=== PATIENT | female | born 1990 | race Caucasian/White ===

== ENCOUNTER 2019-02-05 06:56 | Emergency (ER) | payer SELFPAY ==
[2019-02-05 06:57] VITALS: BP 152/96; PULSE 75; RESP 16; TEMP 36.5; O2SAT 100; BMI 47.9
--- NOTE | 2019-02-05 07:26 | RAD_ITS ---
STUDY: X-RAY CHEST REASON FOR EXAM: Female, 28 years old. Headache. TECHNIQUE: PA and lateral views of the chest. COMPARISON: None. FINDINGS: The lungs are clear and expanded. There is no demonstrated pleural abnormality. Normal size heart. Normal mediastinum and valeria. Normal visualized pulmonary arteries. Normal visualized aortic arch and descending thoracic aorta. Normal visualized thoracic spine. Normal visualized ribs, clavicles, and shoulders. There is no demonstrated abnormality of the visualized soft tissue structures of the upper abdomen. RAD/Chest PA and Lateral IMPRESSION: Normal x-ray examination of the chest. Electronically Signed: Percy Godoy MD at 8:47 EDT , Service support ,
[2019-02-05 07:38] VITALS: PULSE 82; RESP 20
[2019-02-05] MEDS: Ipratropium/Albuterol Sulfate 3 ML AMPUL.NEB INHALATION (07:38)
[2019-02-05 08:12] LABS: Internal QC Validated? YES +Cl - CLEAR BKGD; Pregnancy, Urine Negative Negative
--- NOTE | 2019-02-05 08:13 | ED.VISSUMM ---
- ER Visit Summary Date of Service: 02/05/19 Chief Complaint: [] Cough chest congestion nasal congestion vomiting History of Present Illness: The patient is a 28 F [] patient reports she has had a runny nose and a harsh cough for a few days she then had some vomiting and diarrhea those symptoms have improved but she still has a harsh dry cough she might have asthma, but she has no other underlying cardia pulmonary disease other than polycystic ovary disease she denies being bowel bladder habits been normal no fever Physical Examination: [] Vital signs are within normal range General, no distress resting comfortably HEENT is generally unremarkable, she does have rhinorrhea and a harsh cough The neck is supple no adenopathy Cardiovascular, regular rate and rhythm Lungs, clear bilateral Abdomen, soft nontender Extremities, no clubbing cyanosis or edema Neurologic, awake alert answering questions appropriately moving all 4 extremities Test Results: [] Emergency Department Course and Treatment: [] Clinically she looks well except for the harsh cough and the rhinorrhea, she received aerosols she had no vomiting she is taking p.o. fluids here without difficulty, chest x-ray is pending Patient's chest x-ray is unremarkable per radiology she is taking p.o. fluids she has no vomiting diarrhea her she is feeling better after the aerosol, at this time the predominance of her system related to rhinorrhea and a harsh cough she will be discharged on Proventil inhaler she will take Mucinex [id number] and follow with her doctors return for change in symptoms Treatment Plan: [] Disposition: [] Home stable Impression: [] URI with harsh cough This note was generated with [employer] dictation software. It may contain incorrect words, spelling, and punctuation that were not noted in review of the chart prior to signing ED Disposition - Plan for ED Patient: Referrals: Александр Cowan DO [Primary Care Provider] -
--- NOTE | 2019-02-05 08:26 | ED.DCSUM_ITS ---
- ER Visit Summary Date of Service: 02/05/19 Chief Complaint: [] Cough chest congestion nasal congestion vomiting History of Present Illness: The patient is a 28 F [] patient reports she has had a runny nose and a harsh cough for a few days she then had some vomiting and diarrhea those symptoms have improved but she still has a harsh dry cough she might have asthma, but she has no other underlying cardia pulmonary disease other than polycystic ovary disease she denies being bowel bladder habits been normal no fever Physical Examination: [] Vital signs are within normal range General, no distress resting comfortably HEENT is generally unremarkable, she does have rhinorrhea and a harsh cough The neck is supple no adenopathy Cardiovascular, regular rate and rhythm Lungs, clear bilateral Abdomen, soft nontender Extremities, no clubbing cyanosis or edema Neurologic, awake alert answering questions appropriately moving all 4 extremities Test Results: [] Emergency Department Course and Treatment: [] Clinically she looks well except for the harsh cough and the rhinorrhea, she received aerosols she had no vomiting she is taking p.o. fluids here without difficulty, chest x-ray is pending Patient's chest x-ray is unremarkable per radiology she is taking p.o. fluids she has no vomiting diarrhea her she is feeling better after the aerosol, at this time the predominance of her system related to rhinorrhea and a harsh cough she will be discharged on Proventil inhaler she will take Mucinex [id number] and follow with her doctors return for change in symptoms Treatment Plan: [] Disposition: [] Home stable Impression: [] URI with harsh cough This note was generated with [employer] dictation software. It may contain incorrect words, spelling, and punctuation that were not noted in review of the chart prior to signing ED Disposition - Plan for ED Patient: Referrals: Александр Cowan DO [Primary Care Provider] -
[2019-02-05 09:07] VITALS: BP 139/87; PULSE 69; RESP 18; O2SAT 97
--- NOTE | 2019-02-05 09:08 | ED.DEP ---
ED Disposition - Plan for ED Patient: Instructions: ED Upper Resp Infec No Abx Tx Prescriptions: Albuterol Inhaler [Ventolin Hfa] 1 - 2 puff INHALATION Q4H PRN PRN #1 inhaler PRN Reason: Wheezing Referrals: Александр Cowan DO [Primary Care Provider] -
[2019-02-05 09:27] VITALS: O2SAT 97
== END 2019-02-05 09:27 | disposition home or self-care (01) ==
PROVIDERS: Emergency Provider Emergency Medicine; Family Provider Family Medicine; PCP Family Medicine
DX: J06.9 Acute upper respiratory infection, unspecified (principal)
CPT/HCPCS: 71046; 81025; 94640; 99282

== ENCOUNTER 2019-07-07 13:41 | Emergency (ER) | payer SELFPAY ==
[2019-07-07 13:42] VITALS: BP 152/113; PULSE 111; RESP 17; TEMP 36.5; O2SAT 97; BMI 46.8
[2019-07-07] MEDS: Ipratropium/Albuterol Sulfate 3 ML AMPUL.NEB INHALATION (14:32)
[2019-07-07 14:33] VITALS: PULSE 72; RESP 20
--- NOTE | 2019-07-07 14:40 | RAD_ITS ---
STUDY: X-RAY CHEST REASON FOR EXAM: Female, 28 years old. Cough. TECHNIQUE: PA and lateral views of the chest. COMPARISON: Comparison is made with prior study dated February 05, 2019. FINDINGS: The lungs are clear and expanded. Scattered calcified granulomas. There is no demonstrated pleural abnormality. Normal size heart. Normal mediastinum and valeria. Normal visualized pulmonary arteries. Normal visualized aortic arch and descending thoracic aorta. Normal visualized thoracic spine. Normal visualized ribs, clavicles, and shoulders. There is no demonstrated abnormality of the visualized soft tissue structures of the upper abdomen. RAD/Chest PA and Lateral IMPRESSION: Scattered calcified granulomas. No acute abnormality is seen. Electronically Signed: Franco Garcia, at 14:55 EDT , Service support ,
[2019-07-07 14:47] LABS: Absolute Lymphocyte Count 2.19 X10^3/uL (0.83-4.51); Absolute Neutrophil Count 6.3 X10^3/uL (2.0-7.7); Basophil# 0.04 X10^3/uL; Basophil% 0.4 % (0-1); Eosinophil# 0.13 X10^3/uL; Eosinophils% 1.4 % (0-5); Hematocrit 35.6 % (37-47); Hemoglobin 11.5 g/dL (12.0-15.0); Lymphocyte # 2.19 X10^3/ul (4.0); Lymphocyte % 23.3 % (19-41); Mean Corp Hgb Conc 32.3 g/dL (32-36); Mean Corpuscular Hgb 29.6 pg (27.0-32.0); Mean Corpuscular Volume 91.5 fL (81-99); Mean Platelet Vol. 9.6 fl (6.2-12.0); Monocyte% 7.5 % (0-10); NRBC Flagged by Analyzer 0 % (0-5); Neutrophil % 67.1 % (47-70); Platelet Count 343 K/mm3 (150-450); RBC Distribution Width CV 12.4 % (11.6-14.6); RBC Distribution Width SD 41.1 fl (35.1-43.9); Red Blood Count 3.89 M/mm3 (4.2-5.4); White Blood Count 9.4 K/mm3 (4.4-11.0)
[2019-07-07 14:59] LABS: Anion Gap 4 (5-15); BUN 11 mg/dL (7-18); BUN/Creat Ratio 14.6 RATIO (10-20); Chloride 109 mmol/L (98-107); Creatinine, Serum 0.75 mg/dL (0.55-1.02); EST Glomerular Filtration Rate 98 mL/min (>60); Est Glom Filt Rate - Afr Amer 119 mL/min (>60); Estimated Creatinine Clearance 81.65 ml/min; Glucose 91 mg/dL (74-106); Potassium 3.8 mmol/L (3.5-5.1); Sodium Level 141 mmol/L (136-145)
--- NOTE | 2019-07-07 15:51 | ED.DCSUM_ITS ---
- ER Visit Summary Date of Service: 07/07/19 Chief Complaint: Cough History of Present Illness: The patient is a 28 F who presents with a cough that began yesterday. Patient states it is been constant since yesterday. Patient states she has sharp pain in her left chest that is worse with coughing. Patien t states her cough is worse when she lays down. Patient admits to some lightheadedness. Patient states that her cough improves when she lifts her arms above her head. Patient admits to subjective fevers and chills. Patient also admits to a sore throat and rhinorrhea. Patient admits to a mild headache. Patient admits to nausea but denies any vomiting. Physical Examination: Vital signs are stable except for mild tachycardia of 111. Patient is afebrile. Patient is in no acute distress. Oral mucosa is pink and moist. Neck is supple. Trachea is midline. There is no JVD noted. Heart was regular rate and rhythm. Lungs are clear and equal bilaterally. Abdomen is soft and nontender. Cranial nerves II through XII are intact. There are no focal motor or sensory deficits noted. Skin is warm and dry. Test Results: PA and lateral chest x-ray was obtained. There is no acute cardiopulmonary process noted. Emergency Department Course and Treatment: Patient was given a DuoNeb aerosol here. Patient felt better on reevaluation. Patient was advised that this is most likely a viral upper respiratory infection. Patient was instructed to follow-up with her primary care physician in 5 to 7 days. Patient was instructed to use [id number] cough medications as needed. Patient understood and was agreeable with the plan. All questions were answered. Disposition: Discharge home Impression: Viral upper respiratory infection with cough This note was generated with [employer] dictation software. It may contain incorrect words, spelling, and punctuation that were not noted in review of the chart prior to signing ED Disposition - Plan for ED Patient: Disposition: Home or Assisted Living Diagnosis: Viral upper respiratory tract infection with cough Instructions: BRONCHITIS, No Antibiotic (Adult) Referrals: Александр Cowan, [Primary Care Provider] - 5-7 Days
[2019-07-07 16:04] VITALS: BP 111/78; PULSE 97; RESP 18; O2SAT 99
== END 2019-07-07 16:11 | disposition home or self-care (01) ==
PROVIDERS: Emergency Provider Emergency Medicine; Family Provider Family Medicine; PCP Family Medicine
DX: J06.9 Acute upper respiratory infection, unspecified (principal); M54.9 Dorsalgia, unspecified; E66.9 Obesity, unspecified; Z87.891 Personal history of nicotine dependence
CPT/HCPCS: 71046; 80048; 85025; 94640; 99283

== ENCOUNTER 2020-01-15 09:56 | Emergency (ER) | payer SELFPAY ==
[2020-01-15 09:56] VITALS: BP 156/105; PULSE 82; RESP 18; TEMP 36.9; O2SAT 99; BMI 48.8
[2020-01-15 10:41] VITALS: RESP 16
[2020-01-15 10:50] LABS: Bedside Glucose 85 mg/dL (70-110)
[2020-01-15 11:09] LABS: Color, Urine Yellow (Yellow); Glucose, Dipstick Normal (Normal); Ketone-Dipstick 5 mg/dl (Negative); Leukocyte Esterase-Dipstick 25 /ul (Negative); Nitrite-Dipstick Negative (Negative); Occult Blood-Urine 10 /ul (Negative); Protein-Dipstick 30 mg/dl (Negative); Specific Gravity, Urine 1.025 (1.002-1.030); Urine Bilirubin Dipstick Negative (Negative); Urine Clarity Sl. Cloudy (Clear); Urine Urobilinogen 1 mg/dl (Normal)
[2020-01-15 11:17] LABS: Bacteria 2+ /hpf (None Seen); Mucous, Urine 3+ /hpf (<or=2+)
[2020-01-15 11:18] LABS: Hyaline Cast 0-5 SEEN /lpf (0-5)
[2020-01-15 11:19] LABS: Red Blood Cells-Urine 0-5 SEEN /hpf (0-5); Squamous Epithelial Cells - UA 0-5 SEEN /hpf (5-10); White Blood Cells 0-5 SEEN /hpf (0-5)
--- NOTE | 2020-01-15 11:51 | ED.VIS.GEN ---
History of Present Illness Chief Complaint: Cough Detail of Chief Complaint: Cough, myalgias, urinary symptoms, headache and feeling ill Informant: Patient Onset: Yesterday Context: Sudden Onset Timing: Continuous Quality: Generalized viral-like symptoms and urinary symptoms Location: Generalized Current Severity: Moderate Maximum Severity: Severe Worsened by: Movement Relieved by: Nothing Associated Symptoms: Respiratory and urinary symptoms Narrative: Patient is 29-year-old female who apparently was seen at outside facility yesterday. She states nothing was done for her. She denies documented fever. She complains of myalgias arthralgias. She reports nasal congestion with cough. Cough is nonproductive. She also complains of frequency and dysuria. She denies flank pain. She does have low central back pain. She denies blood in her urine. She does report headache. Denies photophobia, neck pain or neck stiffness. She reports mild sore throat. She reports chest pain with coughing. She does complain of vague abdominal pain. She has not noted a rash. She denies joint swelling. She denies neurologic symptoms. Prior similar symptoms: Yes Recent Illness/Hospitalization: Yes - Past Medical History (1) No significant past medical history Status: Acute Past Medical History - Allergies and Home Meds Allergies/Adverse Reactions: Allergies bee venom protein (honey bee) Allergy (Verified 02/05/19 07:00) Swelling latex Allergy (Verified 02/05/19 07:00) Rash Primary Care Physician: Александр Cowan DO [Primary Care Provider] - Prior records reviewed: No Past Medical History: None Surgical History: cholecystectomy Lives: Spouse/ Significant Other Smoking Status: Current some day smoker Alcohol: Rare Drugs: None Review of Systems General: Reports: Chills, Fever, Malaise, Subjective. Denies: Sweats, Weight loss Eyes: Denies: Visual changes - bilaterally, Blurred Vision - bilaterally ENT: Reports: Rhinorrhea, Sore throat. Denies: Bilateral ear pain Cardiovascular: Denies: Chest pain, Palpitations Respiratory: Reports: Dyspnea, Cough. Denies: Sputum, Orthopnea, Paroxysmal nocturnal dyspnea Gastrointestinal: Reports: Abdominal pain, Nausea. Denies: Diarrhea, Constipation, Melena, Hematochezia Genitourinary: Reports: Dysuria, Frequency. Denies: Hematuria Musculoskeletal: Reports: Myalgias, Back pain. Denies: Arthralgias, Neck pain, Swelling, Extremity Pain Skin: Denies: Rash, Wounds Neurological: Reports: Headache, Weakness. Denies: Parasthesia, Numbness Endocrine: Denies: Polyuria, Polydipsia Hematologic: Denies: Easy bruising, Easy bleeding Physical Exam Vital Signs/Narrative: Vital Signs Temp Pulse Resp BP Pulse Ox 01/15/20 10:41 16 01/15/20 09:56 98.4 F 82 18 156/105 H 99 Inital Vital Signs reviewed: Yes General: Well nourished, Well developed, Obese, No Acute Distress Head: Normocephalic, Atraumatic Eyes: Perrl, EOMI. Negative for: Pale conjunctiva, Scleral icterus ENT: Moist mucous membranes, No rhinorrhea, TM's clear Neck: Supple, Nontender, No lymphadenopathy, No JVD Cardiovascular: Regular rate, Regular rhythm, No murmurs, Normal S1, Normal S2 Respiratory: No distress, CTA bilaterally, Chest nontender. Negative for: Decreased Air Movement Abdomen: Soft, Nondistended, Normal bowel sounds, No masses, Tender - Discomfort suprapubic region.. Negative for: Nontender Rectal: Deferred Back: Nontender, Normal Inspection. Negative for: CVA tenderness Extremities: Nontender, No edema. Negative for: Tenderness, Edema Skin: Normal color, No rash, No Trauma. Negative for: Cyanosis, Diaphoresis, Jaundice Neurological: Alert, Oriented x3, Cranial nerves II-XII grossly intact Psychological: - - Overdramatic Diagnostic/Tx/Re-eval Laboratory Results 01/15/20 01/15/20 10:39 10:57 Urine Color Yellow Urine Clarity Sl. Cloudy Urine pH 5.0 Ur Specific [place] 1.025 Urine Protein 30 H Urine Glucose (UA) Normal Urine Ketones 5 H Urine Occult Blood 10 H Urine Nitrite Negative Urine Bilirubin Negative Urine Urobilinogen 1 H Ur Leukocyte Esterase 25 H Urine RBC 0-5 SEEN Urine WBC 0-5 SEEN Ur Squamous Epith Cells 0-5 SEEN Urine Bacteria 2+ Hyaline Casts 0-5 SEEN Urine Mucus 3+ POC Glucose 85 - Medical Decision Making PTT was obtained to assess for hyperglycemia as explanation of her frequency. UA was obtained to assess for urinary tract infection. In light of patient's constellation of symptoms and lack of objective respiratory findings suspect patient has a viral upper respiratory infection and no imaging or testing was obtained. Urine is consistent with infection. She received first dose of Macrobid in the emergency department. Culture was not obtained since she is not had a recent urinary tract infection or history of diabetes or being immune suppressed. ED Disposition - Plan for ED Patient: Disposition: Home or Assisted Living Diagnosis: Cystitis, Upper respiratory infection with cough and congestion Instructions: Urinary Tract Infections in Women, URI, Viral, No Abx (Adult) Prescriptions: Nitrofurantoin Macrocrystals [Macrobid] 100 mg PO Q12 #10 cap Prescription Printed Referrals: Александр Cowan, DO [Primary Care Provider] - 3-5 Days if not improving Additional Instructions: You may have a cough for 3 to 4 weeks. You may have aches for 1-2 more weeks.
[2020-01-15] MEDS: Nitrofurantoin Macrocrystals 100 MG Capsule PO (12:11)
[2020-01-15 12:13] VITALS: BP 151/84; PULSE 82; RESP 16; O2SAT 97
--- NOTE | 2020-01-15 12:30 | CM.ED ---
SOCIAL WORK INFORMANT: NURSEHUDSON REASON FOR REFERRAL: RX ASSISTANCE MET WITH PATIENT IN ROOM. INTRODUCED ROLE AND REASON FOR REFERRAL. PATIENT INQUIRING ABOUT COST OF PRESCRIPTION. CALL TO [facility], COST OF PRESCRIPTION IS $16.15. PATIENT STATES ABLE TO AFFORD PRESCRIPTION AND PLANS TO HAVE PRESCRIPTION FILLED AT [facility]. NO OTHER QUESTIONS OR CONCERNS AT THIS TIME. NURSE UPDATED. 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
== END 2020-01-15 12:33 | disposition home or self-care (01) ==
PROVIDERS: Emergency Provider Emergency Medicine; PCP Family Medicine
DX: N30.90 Cystitis, unspecified without hematuria (principal); J06.9 Acute upper respiratory infection, unspecified; R05 Cough; R09.81 Nasal congestion; E66.9 Obesity, unspecified; F17.200 Nicotine dependence, unspecified, uncomplicated
CPT/HCPCS: 81001; 82962; 99284

== ENCOUNTER 2021-03-01 14:58 | Emergency (ER) | payer SELFPAY ==
[2021-03-01 14:59] VITALS: BP 137/100; PULSE 77; RESP 18; TEMP 36.5; O2SAT 99; BMI 46.3
--- NOTE | 2021-03-01 15:17 | EDS_ITS ---
HPI History of Present Illness Chief Complaint: Abd Pain Informant: patient Narrative Narrative: 30-year-old female presents for the evaluation of abdominal pain. Patient states that about 9 days ago she began to have dysuria and urinary frequency. She self treated with cranberry juice fluids and Azo. She started to feel better but by Wednesday the symptoms started to return on she went to outside medical facility and was given a prescription for nitrofurantoin for UTI. She states she started taking that on Wednesday she had at that time developed some lower abdominal discomfort that is now moved more cephalad. Now she notes more of a generalized abdominal pain and also nausea. She notes that she had some low back discomfort that is now higher into the CVA region bilaterally. She denies any fevers. She notes that she recently had some sinus issues which has resolved. She notes she is had prior cholecystectomy. Pain waxes and wanes and at times doubles her over. No change in bowel habits. PFSH PFSH no medical history Home Medications cephalexin 500 mg PO Q12 #10 capsule 03/01/21 [Rx Last Taken Unknown] Allergy/AdvReac Type Severity Reaction Status Date / Time bee venom protein (honey bee) Allergy Swelling Verified 03/01/21 14:59 latex Allergy Rash Verified 03/01/21 14:59 Surgical History (Updated 03/01/21 @ 15:[address] Chriss Siegel DO) History of cholecystectomy Social History (Updated 03/01/21 @ 15:[address] Chriss Siegel DO) household members: family Smoking Status: Former smoker [facility] ED Constitutional Constitutional ED: Denies chills or weight loss Eyes Eyes: Denies change in vision or diplopia ENT ENT ED: Denies ear pain, rhinorrhea or sore throat Cardiovascular Cardiovascular: Denies chest pain, orthopnea, palpitations or racing heartbeat Respiratory/Chest Respiratory/Chest: Denies cough, dyspnea or orthopnea Gastrointestinal Gastrointestinal: Reports abdominal pain and nausea; Denies diarrhea or vomiting Genitourinary Genitourinary ED: Reports dysuria and urinary frequency; Denies hematuria Musculoskeletal Musculoskeletal: Reports back pain; Denies arthralgias or myalgias Integumentary Denies abscess or rash Neurologic Neurologic: Denies headache(s) or weakness Psychiatric Psychiatric: Denies anxiety, depression, suicidal ideation or suicidal thoughts Endocrine Endocrinology: Denies polydipsia, polyphagia or polyuria Allergic/Immunologic Allergic/Immunologic ED: Denies mouth swelling, tongue swelling or urticaria EXAM Physical Exam Const Vital Signs: 03/01/21 14:59 03/01/21 17:29 Temperature 97.7 F L 98 F Temperature Source Temporal Oral Pulse Rate 77 68 Respiratory Rate 18 18 Blood Pressure 137/100 H 160/90 H Blood Pressure Mean 112 113 Pulse Ox 99 97 Oxygen Delivery Method Room Air Room Air Positive well nourished, well developed and obese General Appearance ED: well developed Nutritional Appearance: obese HEENT Reports normocephalic, head/scalp atraumatic and moist mucous membranes Eyes PERRL and EOMs intact bilaterally Neck no lymphadenopathy, supple and no JVD Resp normal respiratory effort and clear to auscultation bilaterally Cardio regular rate, regular rhythm and no murmurs GI non-tender Palpation: soft and tender; Negative for guarding or rebound tenderness present Back/Spine no CVA tenderness and normal ROM Extremity normal to inspection General Extremety ED: Negative for edema General Extremity: Negative for edema Neuro oriented x3 and CN's II-XII intact bilaterally Sensorium / Orientation: alert Motor Exam: strength 5/5 throughout Psych mental status grossly normal Mood & Affect: Negative for depressed or tearful Skin no rashes or lesions noted and no wounds MDM MDM MDM Narrative Medical decision making narrative: Basic blood work showed a white count of 11. Urine showed 1+ bacteria leukocyte Estrace negative nitrates 0-5 whites 0-[address] of the abdomen pelvis was negative for acute pathology. At this point it is possible the patient is not reacting well to her Macrobid. I can change her to Keflex. Patient actually tells me that during the exit interview that her urine culture has returned negative. However given there is still 1+ bacteria and leukocyte esterase will complete that her antibiotic regimen. Return if worsening or concerns Lab Data Attestation: I reviewed the patient's lab results. Labs: Laboratory Results - last 24 hr 03/01/21 03/01/21 03/01/21 15:35 15:35 15:40 WBC 11.0 RBC 4.15 L Hgb 11.8 L Hct 37.6 MCV 90.6 MCH 28.4 MCHC 31.4 L RDW Std Deviation 40.3 RDW Coeff of [place] 12.1 Plt Count 403 MPV 9.9 Immature Gran % (Auto) 0.300 Neut % (Auto) 67.5 Lymph % (Auto) 22.0 Green % (Auto) 7.1 Eos % (Auto) 2.6 Baso % (Auto) 0.5 Absolute Neuts (auto) 7.4 Absolute Lymphs (auto) 2.43 Nucleated RBC % 0 Sodium Potassium Chloride Carbon Dioxide Anion Gap BUN Creatinine Estim Creat Clear Calc Est GFR (MDRD) Af Amer Est GFR (MDRD) Non-Af BUN/Creatinine Ratio Glucose Calcium Total Bilirubin AST ALT Alkaline Phosphatase Total Protein Albumin Globulin Albumin/Globulin Ratio Lipase Urine Color Yellow Urine Clarity Clear Urine pH 6.0 Ur Specific [place] 1.015 Urine Protein Negative Urine Glucose (UA) Normal Urine Ketones Negative Urine Occult Blood Negative Urine Nitrite Negative Urine Bilirubin Negative Urine Urobilinogen Normal Ur Leukocyte Esterase 25 H Urine RBC 0 SEEN Urine WBC 0-5 SEEN Ur Squamous Epith Cells 0-5 SEEN Urine Bacteria 1+ Urine Mucus 0 SEEN Urine Test Negative 03/01/21 15:40 WBC RBC Hgb Hct MCV MCH MCHC RDW Std Deviation RDW Coeff of [place] Plt Count MPV Immature Gran % (Auto) Neut % (Auto) Lymph % (Auto) Green % (Auto) Eos % (Auto) Baso % (Auto) Absolute Neuts (auto) Absolute Lymphs (auto) Nucleated RBC % Sodium 139 Potassium 3.8 Chloride 107 Carbon Dioxide 30.0 Anion Gap 2 L BUN 15 Creatinine 0.74 Estim Creat Clear Calc 85.41 Est GFR (MDRD) Af Amer 121 Est GFR (MDRD) Non-Af 100 BUN/Creatinine Ratio 20.4 H Glucose 89 Calcium 9.5 Total Bilirubin 0.30 AST 12 L ALT 25 Alkaline Phosphatase 83 Total Protein 7.6 Albumin 3.5 Globulin 4.1 Albumin/Globulin Ratio 0.9 Lipase 198 Urine Color Urine Clarity Urine pH Ur Specific [place] Urine Protein Urine Glucose (UA) Urine Ketones Urine Occult Blood Urine Nitrite Urine Bilirubin Urine Urobilinogen Ur Leukocyte Esterase Urine RBC Urine WBC Ur Squamous Epith Cells Urine Bacteria Urine Mucus Urine Test Radiography Diagnostic Testing: Radiology Impression Abdomen/Pelvis CT 03/01/21 16:52 IMPRESSION: Normal enhanced CT of the abdomen and pelvis. Electronically Signed: Jose Tariq MD at 17:43 EDT Tel , Service support , Discharge Plan Triage Chief Complaint: Abd Pain ED Provider: Chriss Siegel Dx/Rx/DC Orders Clinical Impression: Abdominal pain Instructions: ED Abdominal Pain Unkn Cause Fem Prescriptions: New cephalexin [cephalexin] 500 MG capsule 500 mg PO Q12 Qty: 10 RF: 0 Discontinued nitrofurantoin monohyd/m-cryst 100 MG capsule 100 mg PO Q12 Qty: 10 RF: 0 Primary Care Provider: Александр Cowan Referrals: Александр Cowan, [Primary Care Provider] - 1-2 Days if not improving Disposition Disposition: Home, self care
[2021-03-01] MEDS: Ketorolac 30 MG/ML Syringe IV (15:38)
[2021-03-01] MEDS: Ondansetron 4 MG/2 ML Vial IV (15:38)
[2021-03-01 15:53] LABS: Mucous, Urine 0 SEEN /hpf (<or=2+); Red Blood Cells-Urine 0 SEEN /hpf (0-5)
[2021-03-01 15:55] LABS: Absolute Lymphocyte Count 2.43 X10^3/uL (0.83-4.51); Absolute Neutrophil Count 7.4 X10^3/uL (2.0-7.7); Basophil# 0.06 X10^3/uL; Basophil% 0.5 % (0-1); Eosinophil# 0.29 X10^3/uL; Eosinophils% 2.6 % (0-5); Hematocrit 37.6 % (37-47); Hemoglobin 11.8 g/dL (12.0-15.0); Lymphocyte # 2.43 X10^3/ul (0.83-4.51); Mean Corp Hgb Conc 31.4 g/dL (32-36); Mean Corpuscular Hgb 28.4 pg (27.0-32.0); Mean Corpuscular Volume 90.6 fL (81-99); Mean Platelet Vol. 9.9 fl (6.2-12.0); Monocyte# 0.78 X10^3/uL; Monocyte% 7.1 % (0-10); NRBC Flagged by Analyzer 0 % (0-5); Neutrophil # 7.44 X10^3/uL (2.7-7.7); Neutrophil % 67.5 % (47-70); Platelet Count 403 K/mm3 (150-450); RBC Distribution Width CV 12.1 % (11.6-14.6); RBC Distribution Width SD 40.3 fl (35.1-43.9); Red Blood Count 4.15 M/mm3 (4.2-5.4)
[2021-03-01 16:00] LABS: Color, Urine Yellow (Yellow); Glucose, Dipstick Normal (Normal); Ketone-Dipstick Negative (Negative); Leukocyte Esterase-Dipstick 25 /ul (Negative); Nitrite-Dipstick Negative (Negative); Occult Blood-Urine Negative /ul (Negative); Protein-Dipstick Negative (Negative); Specific Gravity, Urine 1.015 (1.002-1.030); Urine Bilirubin Dipstick Negative (Negative); Urine Clarity Clear (Clear); Urine Urobilinogen Normal (Normal)
[2021-03-01 16:03] LABS: Internal QC Validated? YES +Cl - CLEAR BKGD; Pregnancy, Urine Negative Negative
[2021-03-01 16:07] LABS: Bacteria 1+ /hpf (None Seen); Squamous Epithelial Cells - UA 0-5 SEEN /hpf (5-10); White Blood Cells 0-5 SEEN /hpf (0-5)
[2021-03-01 16:42] LABS: ALB/GLOB Ratio 0.9 RATIO (0.9-2.4); AST(SGOT) 12 U/L (15-37); Alanine Aminotransfer ALT/SGPT 25 U/L (13-56); Albumin, Serum 3.5 g/dL (3.2-5.0); Alkaline Phosphatase 83 U/L (45-117); Anion Gap 2 (5-15); BUN 15 mg/dL (7-18); BUN/Creat Ratio 20.4 RATIO (10-20); Calcium,Total 9.5 mg/dL (8.5-10.1); Chloride 107 mmol/L (98-107); Creatinine, Serum 0.74 mg/dL (0.55-1.02); EST Glomerular Filtration Rate 100 mL/min (>60); Est Glom Filt Rate - Afr Amer 121 mL/min (>60); Estimated Creatinine Clearance 85.41 ml/min; Globulin 4.1 g/dL (2.2-4.2); Glucose 89 mg/dL (74-106); Lipase 198 U/L (73-393); Potassium 3.8 mmol/L (3.5-5.1); Protein, Total 7.6 g/dL (6.4-8.2); Sodium Level 139 mmol/L (136-145)
--- NOTE | 2021-03-01 16:52 | CT_ITS ---
STUDY: CT ABDOMEN AND PELVIS WITH CONTRAST REASON FOR EXAM: Female, 30 years old. Abdominal pain nausea vomiting UTI on antibiotics RADIATION DOSAGE (If Supplied By Facility): CTDIvol = ( 21.91 ) mGy, DLP = ( 1185.97 ) mGycm TECHNIQUE: CT images were obtained from the dome of the diaphragm to the symphysis pubis without oral contrast. IV 100ML ISOVUE 300 was administered. Sagittal and coronal images were reconstructed. Individualized dose optimization techniques were used for this CT. COMPARISON: None. FINDINGS: The visualized lung bases are unremarkable. The visualized portions of the heart are within normal limits. Liver is mildly enlarged without focal lesions. Gallbladder is removed.. Normal spleen. Normal pancreas. Normal bilateral adrenal glands. Normal right kidney. Normal left kidney. There is no intestinal obstruction. There is mild colonic diverticulosis. Normal abdominal aorta. Normal inferior vena cava. Normal retroperitoneum. Normal urinary bladder. Normal abdominal wall. Normal osseous structures. CT/Abdomen/Pelvis W IV Cont ONLY IMPRESSION: Normal enhanced CT of the abdomen and pelvis. Electronically Signed: Jose Tariq MD at 17:43 EDT Tel , Service support ,
[2021-03-01 17:29] VITALS: BP 160/90; PULSE 68; RESP 18; TEMP 36.6; O2SAT 97
[2021-03-01 18:40] VITALS: BP 157/89; PULSE 71; RESP 16; O2SAT 97
== END 2021-03-01 18:41 | disposition home or self-care (01) ==
PROVIDERS: Emergency Provider Emergency Medicine; PCP Family Medicine
DX: R10.9 Unspecified abdominal pain (principal); N39.0 Urinary tract infection, site not specified; E66.9 Obesity, unspecified; Z68.42 Body mass index [BMI] 45.0-49.9, adult; Z90.49 Acquired absence of other specified parts of digestive tract; Z87.891 Personal history of nicotine dependence
CPT/HCPCS: 74177; 80053; 81001; 81025; 83690; 85025; 96374; 96375; 99283; Q9967; A4216; J2405

== ENCOUNTER 2021-06-23 02:15 | Emergency (ER) | payer MEDICAID, SELFPAY ==
[2021-06-23 02:16] VITALS: BP 141/90; PULSE 67; RESP 16; TEMP 37.1; O2SAT 99; BMI 47.8
--- NOTE | 2021-06-23 02:51 | RAD_ITS ---
STUDY: X-RAY CHEST REASON FOR EXAM: Female, 30 years old. Cough TECHNIQUE: Portable, upright, AP chest radiograph COMPARISON: 07/07/2019 FINDINGS: The lungs are clear and expanded. There is no demonstrated pleural abnormality. Normal size heart. Normal mediastinum and valeria. Normal visualized pulmonary arteries. Normal visualized aortic arch and descending thoracic aorta. Normal visualized thoracic spine. Normal visualized ribs, clavicles, and shoulders. There is no demonstrated abnormality of the visualized soft tissue structures of the upper abdomen. RAD/Chest 1 View (Portable) IMPRESSION: Normal x-ray examination of the chest. Electronically Signed: Fernando Drake MD at 3:45 EDT Tel , Service support ,
--- NOTE | 2021-06-23 02:51 | EX.ED.VIS.UR ---
HPI HPI - URI History of Present Illness Chief Complaint: Cough Informant: patient Onset/Context/Timing Onset: Days Context: Gradual Onset Timing: Continuous Current Severity: Mild Maximum Severity: Mild Associated Symptoms Associated Symptoms: Positive for Nasal Congestion and Productive Cough Narrative Narrative: 30-year-old female history of asthma. Did not get vaccinated for Covid. Cousin was diagnosed with Covid about a week ago. Patient's had cough for approximately a week. Denies shortness of breath. Also states there was a outbreak of Covid at her place of work. Prior similar symptoms: Yes Recent Illness/Hospitalization: No ROS ROS ED ROS Narrative Cough. Review of Systems ROS Unobtainable: Denies due to encephalopathy Constitutional Constitutional ED: Denies chills or fever(s) Eyes Eyes: Denies change in vision ENT ENT ED: Denies ear pain or sore throat Cardiovascular Cardiovascular: Denies chest pain Respiratory/Chest Respiratory/Chest: Reports cough and sputum; Denies dyspnea Gastrointestinal Gastrointestinal: Reports diarrhea; Denies abdominal pain, nausea or vomiting Genitourinary Genitourinary ED: Denies dysuria Musculoskeletal Musculoskeletal: Denies myalgias Integumentary Denies rash Neurologic Neurologic: Denies headache(s) Psychiatric Psychiatric: Denies depression Endocrine Endocrinology: Denies polyuria Hematologic/Lymphatic Hematologic/Lymphatic: Denies easy bruising Allergic/Immunologic Allergic/Immunologic ED: Denies urticaria PFSH PFSH Medical History Anxiety Asthma Depression Former smoker PTSD (post-traumatic stress disorder) Home Medications NK 06/23/21 [History Last Taken Unknown] Allergy/AdvReac Type Severity Reaction Status Date / Time bee venom protein (honey bee) Allergy Swelling Verified 06/23/21 02:21 latex Allergy Rash Verified 03/01/21 14:59 sulfamethoxazole AdvReac Vomiting Verified 06/23/21 02:23 [From Bactrim] trimethoprim [From Bactrim] AdvReac Vomiting Verified 06/23/21 02:23 Surgical History History of cholecystectomy Social History household members: family Smoking Status: Former smoker EXAM Physical Exam Narrative Exam Narrative: Young female no acute distress. Pulse ox 99%. H EENT exam unremarkable. Moist weeks membranes. Neck nontender no lymphadenopathy. Lungs clear to auscultation bilaterally. Dry cough. No rales, rhonchi or wheezing at this time. Heart regular rate and rhythm no murmur. Abdomen soft nontender. Moving all 4 extremities. No edema. Neurologically awake alert no focal motor deficits. Const Vital Signs: 06/23/21 02:16 Temperature 98.7 F Temperature Source Oral Pulse Rate 67 Respiratory Rate 16 Blood Pressure 141/90 H Blood Pressure Mean 107 Pulse Ox 99 Oxygen Delivery Method Room Air Positive well nourished, well developed and obese General Appearance ED: well developed and NAD; Negative for pallor Nutritional Appearance: obese HEENT Reports moist mucous membranes normocephalic and atraumatic Face and Sinus: Negative for sinus tenderness or facial tenderness Eyes PERRL and EOMs intact bilaterally Neck no lymphadenopathy, supple, no meningeal signs and no JVD General: Negative for anterior neck swelling Resp normal respiratory effort and clear to auscultation bilaterally Auscultation: Negative for rales, rhonchi or wheezes Cardio S1 normal heart sound, S2 normal heart sound and no murmurs Rate: regular rate Rhythm: regular rhythm GI non-tender, non-distended and no masses Inspection: Negative for abdominal distention Auscultation: normoactive bowel sounds Palpation: soft; Negative for tender or guarding Back/Spine no CVA tenderness and normal ROM General Back: Negative for CVA tenderness Cervical Spine: Negative for cervical spine tenderness Extremity normal to inspection and full ROM Neuro oriented x3 and CN's II-XII intact bilaterally Sensorium / Orientation: alert, oriented to person, oriented to place and oriented to time; Negative for orientation impaired, lethargic or stuporous Motor Exam: strength 5/5 throughout Psych mental status grossly normal Mood & Affect: Negative for depressed or tearful Skin General Skin Exam: Negative for jaundice or pallor Lesions: no lesions Rashes: no rashes MDM MDM MDM Narrative Medical decision making narrative: Patient with possible Covid versus a URI. Chest x-ray and Covid test being obtained. Repeat exam patient doing well at 4:30 AM will be discharged home. I discussed her test results with her. Lab Data Attestation: I reviewed the patient's lab results. Lab results narrative: Rapid COVID-19 negative. Radiography Diagnostic Testing: Radiology Impression Chest X-Ray 06/23/21 02:51 IMPRESSION: Normal x-ray examination of the chest. Electronically Signed: Fernando Drake MD at 3:45 EDT Tel , Service support , Portable single view chest x-ray interpreted by myself shows no acute abnormality. Normal cardiac silhouette. No infiltrate. No signs of Covid. No pneumonia. Discharge Plan Triage Chief Complaint: Cough ED Provider: Benedicto Marquez Dx/Rx/DC Orders Prescriptions: No Action NK RF: 0 Primary Care Provider: Александр Cowan
[2021-06-23 04:53] VITALS: BP 122/94; PULSE 71; RESP 16; O2SAT 96
== END 2021-06-23 04:53 | disposition home or self-care (01) ==
PROVIDERS: Emergency Provider Emergency Medicine; PCP Family Medicine
DX: R05 Cough (principal); E66.9 Obesity, unspecified; Z68.42 Body mass index [BMI] 45.0-49.9, adult; F43.10 Post-traumatic stress disorder, unspecified; J45.909 Unspecified asthma, uncomplicated; Z87.891 Personal history of nicotine dependence
CPT/HCPCS: 71045; 87426; 99282

== ENCOUNTER 2022-03-15 13:58 | Emergency (ER) | payer MEDICAID, SELFPAY ==
[2022-03-15 13:59] VITALS: BP 140/100; PULSE 119; RESP 18; TEMP 36.7; O2SAT 99; BMI 43.9
--- NOTE | 2022-03-15 14:11 | CT_ITS ---
STUDY: CT ABDOMEN AND PELVIS WITHOUT CONTRAST REASON FOR EXAM: Female, 31 years old. Pain RADIATION DOSAGE (If Supplied By Facility): CTDIvol = ( 21.43 ) mGy, DLP = ( 1102.69 ) mGycm TECHNIQUE: Transaxial images were obtained from the dome of the diaphragm to the symphysis pubis without oral contrast, and without intravenous contrast. Sagittal and coronal images were reconstructed. Individualized dose optimization techniques were used for this CT. COMPARISON: 03/01/2021 FINDINGS: Lung bases clear. Unremarkable liver, pancreas, and adrenals on this unenhanced study. Calcified splenic granulomas. Status post cholecystectomy. No radiopaque urolithiasis or hydroureteronephrosis on either side. Normal appendix. Bowel loops nonobstructed. Multiple fluid-filled small bowel loops, nonspecific. No free air or free fluid. No adenopathy. No abdominal aortic aneurysm. Sections through the pelvis demonstrate an incompletely distended but grossly unremarkable urinary bladder. No definite adnexal mass. Intact osseous structures. CT/Abdomen/Pelvis without Cont IMPRESSION: Multiple fluid-filled small bowel loops, nonspecific finding which can be seen with acute enteritis. No other acute finding in the abdomen and pelvis on this unenhanced study. Electronically Signed: Govind Guzman MD at 15:46 EDT ,
--- NOTE | 2022-03-15 14:11 | ED.VIS.GI ---
HPI HPI - GI History of Present Illness Chief Complaint: Nausea/Vomiting/Diarrhea Narrative Narrative: Patient with past medical history of previous diverticulitis presents with multiple somatic complaints ranging from abdominal pain to nausea and vomiting, with diarrhea. States she feels lightheaded. She admits to drinking alcohol yesterday evening, and with in the last 13 hours had 10 episodes of vomiting that was nonbloody. She states that for the last 2 days she has had loose stool/watery stool also without any blood in her feces. She has left-sided flank pain but denies any dysuria or hematuria, no fevers or chills. She also admits to smoking marijuana yesterday morning. She feels lightheaded at times. [facility] Medical History Anxiety Asthma Depression Diverticulitis Former smoker PTSD (post-traumatic stress disorder) Home Medications bupropion HCl 100 mg PO BID 03/15/22 [History Last Taken Unknown] etonogestrel-ethinyl estradiol 1 vag ring VAGINAL 03/15/22 [History Last Taken Unknown] ondansetron 4 mg PO Q6H PRN #15 tab 03/15/22 [Rx Last Taken Unknown] Allergy/AdvReac Type Severity Reaction Status Date / Time bee venom protein (honey bee) Allergy Swelling Verified 03/15/22 14:00 latex Allergy Rash Verified 03/15/22 14:00 sulfamethoxazole AdvReac Vomiting Verified 03/15/22 14:00 [From Bactrim] trimethoprim [From Bactrim] AdvReac Vomiting Verified 03/15/22 14:00 Surgical History History of cholecystectomy Social History household members: family Smoking Status: Former smoker ROS ROS ED ROS Narrative Constitutional: No fever, occasional chills. HEENT: No sore throat. No neck pain. No loss of vision. No rhinorrhea. Cardiovascular: No chest pain. No palpitations. No pedal edema. Respiratory: No cough, no shortness of breath. Abdominal: Left upper and lower quadrant abdominal pain. Positive nausea. 10 episodes of nonbloody vomiting. Diarrhea x2 days. Genitourinary: No dysuria. No hematuria. Musculoskeletal: No myalgias. No arthralgias. Neurologic: No headaches. No dizziness. Positive lightheadedness. Skin: No rash. No change in color. Psychiatric: No depression. No anxiety. EXAM Physical Exam Narrative Exam Narrative: Afebrile. Vital signs noted. HEENT: Normocephalic. Atraumatic. PERRL, EOMI. Neck soft and supple. No point tenderness or step off. Cardiovascular: Mild tachycardia, no murmurs, rubs, or gallops appreciated. Respiratory: No tachypnea. Lungs clear to auscultation bilaterally. Gastrointestinal: Abdomen soft, mild tenderness left upper and lower quadrant, with normoactive bowel sounds. No rebound or guarding. Neurological: Awake. Alert. Nonfocal, nonlateralizing. Skin: No rash. Normal color. No pallor. Musculoskeletal: No pedal edema. Full range of motion extremities. Const Vital Signs: 03/15/22 13:59 Temperature 98.1 F Temperature Source Temporal Pulse Rate 119 H Respiratory Rate 18 Blood Pressure 140/100 H Blood Pressure Mean 113 Pulse Ox 99 Oxygen Delivery Method Room Air MDM MDM MDM Narrative Medical decision making narrative: Comprehensive work-up was pursued. I will obtain CT imaging. She was bolused normal saline 1 L intravenously, and administered ondansetron. I discussed how marijuana can cause cyclic vomiting. She will also be ruled out for pancreatitis given her alcohol use last evening. Lipase will be performed to look for pancreatitis from recent alcohol use. CBC shows elevated white count of 16.7 which I think may be demargination from her vomiting. Hemoglobin stable 11.6. Normal platelet count of 404. Electrolyte panel is grossly unremarkable with a glucose of 121 and a normal anion gap of 8. LFTs show AST low at 13, normal ALT of 21. Lipase normal. Urinalysis shows no evidence of infection or ketones. Serum test is negative. CT of the abdomen and pelvis shows enteritis but no evidence of obstruction or diverticulitis. I do not feel antibiotics are indicated. Upon repeat examination she is resting comfortably on the cot, using her telephone. She will be given a prescription for Zofran and told to start a clear liquid diet and advance as tolerated. I feel she can be discharged safely home with follow-up. Return instructions were reviewed. Disposition is discharged home in stable condition. Lab Data Attestation: I reviewed the patient's lab results. Labs: Laboratory Results - last 24 hr 03/15/22 03/15/22 03/15/22 14:16 14:16 14:16 WBC 16.7 H RBC 4.01 L Hgb 11.6 L Hct 36.2 L MCV 90.3 MCH 28.9 MCHC 32.0 RDW Std Deviation 40.5 RDW Coeff of [place] 12.2 Plt Count 404 MPV 10.4 Immature Gran % (Auto) 0.400 Neut % (Auto) 89.1 H Lymph % (Auto) 7.8 L [place] % (Auto) 2.4 Eos % (Auto) 0.0 Baso % (Auto) 0.3 Absolute Neuts (auto) 14.9 H Absolute Lymphs (auto) 1.30 Nucleated RBC % 0 Sodium 138 Potassium 3.5 Chloride 107 Carbon Dioxide 23.0 Anion Gap 8 BUN 12 Creatinine 0.85 Estim Creat Clear Calc 70.15 Est GFR (MDRD) Af Amer 102 Est GFR (MDRD) Non-Af 84 BUN/Creatinine Ratio 14.2 Glucose 121 H Calcium 8.9 Total Bilirubin 0.50 AST 13 L ALT 21 Alkaline Phosphatase 82 Total Protein 7.8 Albumin 3.5 Globulin 4.3 H Albumin/Globulin Ratio 0.8 L Lipase Serum , Qual NEGATIVE Urine Color Urine Clarity Urine pH Ur Specific [place] Urine Protein Urine Glucose (UA) Urine Ketones Urine Occult Blood Urine Nitrite Urine Bilirubin Urine Urobilinogen Ur Leukocyte Esterase Urine RBC Urine WBC Ur Squamous Epith Cells Urine Bacteria Urine Mucus 03/15/22 03/15/22 14:16 15:20 WBC RBC Hgb Hct MCV MCH MCHC RDW Std Deviation RDW Coeff of [place] Plt Count MPV Immature Gran % (Auto) Neut % (Auto) Lymph % (Auto) [place] % (Auto) Eos % (Auto) Baso % (Auto) Absolute Neuts (auto) Absolute Lymphs (auto) Nucleated RBC % Sodium Potassium Chloride Carbon Dioxide Anion Gap BUN Creatinine Estim Creat Clear Calc Est GFR (MDRD) Af Amer Est GFR (MDRD) Non-Af BUN/Creatinine Ratio Glucose Calcium Total Bilirubin AST ALT Alkaline Phosphatase Total Protein Albumin Globulin Albumin/Globulin Ratio Lipase 131 Serum , Qual Urine Color Yellow Urine Clarity Sl. Cloudy Urine pH 6.0 Ur Specific [place] 1.010 Urine Protein 30 H Urine Glucose (UA) Normal Urine Ketones Negative Urine Occult Blood 250 H Urine Nitrite Negative Urine Bilirubin Negative Urine Urobilinogen Normal Ur Leukocyte Esterase 25 H Urine RBC 10-25 SEEN Urine WBC 0-5 SEEN Ur Squamous Epith Cells 0-5 SEEN Urine Bacteria 0 SEEN Urine Mucus 0 SEEN Radiography Diagnostic Testing: Clinical Impression(s) from Imaging Studies Abdomen/Pelvis CT 03/15/22 14:11 IMPRESSION: Multiple fluid-filled small bowel loops, nonspecific finding which can be seen with acute enteritis. No other acute finding in the abdomen and pelvis on this unenhanced study. Electronically Signed: Govind Guzman MD at 15:46 EDT , Discharge Plan Triage Chief Complaint: Nausea/Vomiting/Diarrhea ED Provider: Davion Mims Dx/Rx/DC Orders Clinical Impression: Nausea vomiting and diarrhea, Gastroenteritis Instructions: ED Gastroenteritis, Viral (Adult) Prescriptions: New ondansetron 4 mg tablet,disintegrating 4 mg PO Q6H PRN (Reason: nausea and vomiting) Qty: 15 RF: 0 No Action etonogestrel-ethinyl estradiol 0.12-0.015 mg/24 hr ring 1 vag ring VAGINAL RF: 0 bupropion HCl 100 mg tablet sustained-release 12 hr 100 mg PO BID RF: 0 Primary Care Provider: Seng Ricketts Referrals: Seng Ricketts MD [Primary Care Provider] - 3-5 Days if not improving Disposition Disposition: Home, Self Care
[2022-03-15] MEDS: 0.9% Normal Saline 1,000 ML 1000 ML IV (14:25)
[2022-03-15] MEDS: Ondansetron 4 MG/2 ML Vial IV (14:26)
[2022-03-15 14:39] LABS: Absolute Neutrophil Count 14.9 X10^3/uL (2.0-7.7); Basophil# 0.05 X10^3/uL; Basophil% 0.3 % (0-1); Hematocrit 36.2 % (37-47); Hemoglobin 11.6 g/dL (12.0-15.0); Lymphocyte % 7.8 % (19-41); Mean Corpuscular Hgb 28.9 pg (27.0-32.0); Mean Corpuscular Volume 90.3 fL (81-99); Mean Platelet Vol. 10.4 fl (6.2-12.0); Monocyte% 2.4 % (0-10); NRBC Flagged by Analyzer 0 % (0-5); Neutrophil # 14.89 X10^3/uL (2.7-7.7); Neutrophil % 89.1 % (47-70); Platelet Count 404 K/mm3 (150-450); RBC Distribution Width CV 12.2 % (11.6-14.6); RBC Distribution Width SD 40.5 fl (35.1-43.9); Red Blood Count 4.01 M/mm3 (4.2-5.4); White Blood Count 16.7 K/mm3 (4.4-11.0)
[2022-03-15 14:46] LABS: Internal QC Validated? YES +Cl - CLEAR BKGD; Pregnancy, Serum, hCG Quali. NEGATIVE Negative
[2022-03-15 14:54] LABS: ALB/GLOB Ratio 0.8 RATIO (0.9-2.4); AST(SGOT) 13 U/L (15-37); Alanine Aminotransfer ALT/SGPT 21 U/L (13-56); Albumin, Serum 3.5 g/dL (3.2-5.0); Alkaline Phosphatase 82 U/L (45-117); Anion Gap 8 (5-15); BUN 12 mg/dL (7-18); BUN/Creat Ratio 14.2 RATIO (10-20); Calcium,Total 8.9 mg/dL (8.5-10.1); Chloride 107 mmol/L (98-107); Creatinine, Serum 0.85 mg/dL (0.55-1.02); EST Glomerular Filtration Rate 84 mL/min (>60); Est Glom Filt Rate - Afr Amer 102 mL/min (>60); Estimated Creatinine Clearance 70.15 ml/min; Globulin 4.3 g/dL (2.2-4.2); Glucose 121 mg/dL (74-106); Potassium 3.5 mmol/L (3.5-5.1); Protein, Total 7.8 g/dL (6.4-8.2); Sodium Level 138 mmol/L (136-145)
[2022-03-15 15:25] LABS: Bacteria 0 SEEN /hpf (None Seen); Mucous, Urine 0 SEEN /hpf (<or=2+)
[2022-03-15 15:32] LABS: Color, Urine Yellow (Yellow); Glucose, Dipstick Normal (Normal); Ketone-Dipstick Negative (Negative); Leukocyte Esterase-Dipstick 25 /ul (Negative); Nitrite-Dipstick Negative (Negative); Occult Blood-Urine 250 /ul (Negative); Protein-Dipstick 30 mg/dl (Negative); Urine Bilirubin Dipstick Negative (Negative); Urine Clarity Sl. Cloudy (Clear); Urine Urobilinogen Normal (Normal)
[2022-03-15 15:34] LABS: Lipase 131 U/L (73-393)
[2022-03-15 15:49] LABS: Red Blood Cells-Urine 10-25 SEEN /hpf (0-5); Squamous Epithelial Cells - UA 0-5 SEEN /hpf (5-10); White Blood Cells 0-5 SEEN /hpf (0-5)
[2022-03-15 16:17] VITALS: BP 138/77; PULSE 82; RESP 16; O2SAT 97
== END 2022-03-15 16:18 | disposition home or self-care (01) ==
PROVIDERS: Emergency Provider Emergency Medicine; PCP Internal Medicine; Visit Provider Emergency Medicine
DX: K52.9 Noninfective gastroenteritis and colitis, unspecified (principal); Z87.891 Personal history of nicotine dependence; F12.90 Cannabis use, unspecified, uncomplicated; F32.A Depression, unspecified; F41.9 Anxiety disorder, unspecified; J45.909 Unspecified asthma, uncomplicated; F43.10 Post-traumatic stress disorder, unspecified; Z87.19 Personal history of other diseases of the digestive system; Z79.899 Other long term (current) drug therapy; Z90.49 Acquired absence of other specified parts of digestive tract
CPT/HCPCS: 74176; 80053; 81001; 83690; 84703; 85025; 96361; 96374; 99283; J7030; A4216; J2405

== ENCOUNTER 2022-05-08 17:37 | Emergency (ER) | payer MEDICAID, SELFPAY ==
[2022-05-08 17:39] VITALS: BP 157/111; PULSE 89; RESP 18; TEMP 36.4; O2SAT 99; BMI 43.5
[2022-05-08 19:14] LABS: Bacteria 0 SEEN /hpf (None Seen); Mucous, Urine 0 SEEN /hpf (<or=2+); Red Blood Cells-Urine 0 SEEN /hpf (0-5); White Blood Cells 0 SEEN /hpf (0-5)
[2022-05-08 19:17] LABS: Color, Urine Yellow (Yellow); Glucose, Dipstick Normal (Normal); Ketone-Dipstick Negative (Negative); Leukocyte Esterase-Dipstick Negative /ul (Negative); Nitrite-Dipstick Negative (Negative); Occult Blood-Urine Negative /ul (Negative); Protein-Dipstick 15 mg/dl (Negative); Specific Gravity, Urine 1.005 (1.002-1.030); Urine Bilirubin Dipstick Negative (Negative); Urine Clarity Clear (Clear); Urine Urobilinogen Normal (Normal); Urine pH 6.5 (5.0 - 8.0)
[2022-05-08 19:24] LABS: Squamous Epithelial Cells - UA 0-5 SEEN /hpf (5-10)
[2022-05-08 19:25] LABS: Internal QC Validated? YES +Cl - CLEAR BKGD; Pregnancy, Urine Negative Negative
--- NOTE | 2022-05-08 19:46 | ED.VIS.FEGU ---
HPI HPI - Female History of Present Illness Chief Complaint: Vag Bld, Preg Informant: patient Pain Pain: Positive for Pelvic Pain Onset: Days Timing: Continuous and Waxes and wanes Quality: Positive for Sharp Location: Suprapubic and Back Bleeding Issue: Positive for Vaginal bleeding and Passing clots Onset: Days (2) Context: Gradual Onset Timing: Intermittent Current Severity: Mild Associated Symptoms Associated Symptoms: Positive for Frequency and Missed Period; Negative for Dysuria or Hematuria Test: Positive Narrative Narrative: Patient presents with pelvic pain and vaginal bleeding that began 2 days ago. Patient states she has taken a home test which were positive. Patient states she passed some blood 2 days ago. Patient states she thinks she passed a clot at that time. Patient states she has been having some sharp pain in her lower abdomen and pelvis. Patient states it radiates into her back. Patient states it waxes and wanes but is constant. Patient denies any fevers or chills. Patient admits to some urinary frequency but denies any dysuria. Patient states her last normal menstrual period was 04/01/2022. Patient states she is on the [employer]. [facility] Medical History Anxiety Asthma Depression Diverticulitis Former smoker PCOS (polycystic ovarian syndrome) PTSD (post-traumatic stress disorder) Home Medications bupropion HCl 100 mg tablet,12 hr sustained-release 100 mg PO BID 03/15/22 [History Last Taken Unknown] etonogestrel 0.12 mg-ethinyl estradiol 0.015 mg/24 hr vaginal ring 1 vag ring vaginal 03/15/22 [History Last Taken Unknown] ondansetron 4 mg disintegrating tablet 4 mg PO Q6H PRN nausea and vomiting #15 tabs 03/15/22 [Rx Last Taken Unknown] Allergy/AdvReac Type Severity Reaction Status Date / Time bee venom protein (honey bee) Allergy Swelling Verified 05/08/22 17:41 latex Allergy Rash Verified 05/08/22 17:41 sulfamethoxazole AdvReac Vomiting Verified 05/08/22 17:41 [From Bactrim] trimethoprim [From Bactrim] AdvReac Vomiting Verified 05/08/22 17:41 Surgical History History of cholecystectomy Social History household members: family Smoking Status: Former smoker ROS ROS ED Constitutional Constitutional ED: Denies chills or fever(s) Eyes Eyes: Denies blurry vision or change in vision ENT ENT ED: Denies rhinorrhea or sore throat Cardiovascular Cardiovascular: Denies chest pain or palpitations Respiratory/Chest Respiratory/Chest: Denies cough or dyspnea Gastrointestinal Gastrointestinal: Reports abdominal pain and nausea; Denies vomiting Genitourinary Genitourinary ED: Reports urinary frequency; Denies dysuria or hematuria Musculoskeletal Musculoskeletal: Reports back pain; Denies neck pain Integumentary Denies abscess or rash Neurologic Neurologic: Reports headache(s); Denies weakness Allergic/Immunologic Allergic/Immunologic ED: Denies mouth swelling or urticaria EXAM Physical Exam Const Vital Signs: 05/08/22 17:39 Temperature 97.5 F L Temperature Source Temporal Pulse Rate 89 Respiratory Rate 18 Blood Pressure 157/111 H Blood Pressure Mean 126 Pulse Ox 99 Oxygen Delivery Method Room Air Positive well nourished, well developed and obese General Appearance ED: well developed and NAD Nutritional Appearance: obese HEENT Reports moist mucous membranes Neck supple and no JVD Resp normal respiratory effort and clear to auscultation bilaterally Cardio regular rate and regular rhythm GI normal to inspection, nondistended, normoactive bowel sounds Palpation: tender suprapubic; Negative for guarding Back/Spine no CVA tenderness Extremity normal to inspection and full ROM Neuro oriented x3, CN's II-XII intact bilaterally and no sensory deficits noted Sensorium / Orientation: alert Motor Exam: strength 5/5 throughout Psych mental status grossly normal MDM MDM MDM Narrative Medical decision making narrative: Urinalysis was obtained. There is no evidence of urinary tract infection. Urine test was negative. Patient was advised of her findings. 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 Patient was instructed on pelvic rest. Patient was instructed to return if worse in any way. Patient understood and was agreeable with the plan. All questions were answered. Lab Data Attestation: I reviewed the patient's lab results. Labs: Laboratory Results - last 24 hr 05/08/22 18:46 Urine Color Yellow Urine Clarity Clear Urine pH 6.5 Ur Specific [place] 1.005 Urine Protein 15 H Urine Glucose (UA) Normal Urine Ketones Negative Urine Occult Blood Negative Urine Nitrite Negative Urine Bilirubin Negative Urine Urobilinogen Normal Ur Leukocyte Esterase Negative Urine RBC 0 SEEN Urine WBC 0 SEEN Ur Squamous Epith Cells 0-5 SEEN Urine Bacteria 0 SEEN Urine Mucus 0 SEEN Urine Test Negative Discharge Plan Triage Chief Complaint: Vag Bld, Preg ED Provider: Ramiro De Paz Dx/Rx/DC Orders Clinical Impression: Pelvic pain Instructions: ED Pelvic Pain, Unknown Cause Prescriptions: No Action etonogestrel-ethinyl estradiol 0.12-0.015 mg/24 hr ring 1 vag ring VAGINAL bupropion HCl 100 mg tablet sustained-release 12 hr 100 mg PO BID ondansetron 4 mg tablet,disintegrating 4 mg PO Q6H PRN (Reason: nausea and vomiting) Qty: 15 0RF Primary Care Provider: Seng Ricketts Referrals: Seng Ricketts MD [Primary Care Provider] - 3-5 Days Activity Restrictions/Additional Instructions: Follow-up with your 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 Disposition Disposition: Home, Self Care
== END 2022-05-08 20:29 | disposition home or self-care (01) ==
PROVIDERS: Emergency Provider Emergency Medicine; PCP Internal Medicine; Visit Provider Emergency Medicine
DX: R10.2 Pelvic and perineal pain (principal); Z68.41 Body mass index [BMI] 40.0-44.9, adult; N93.9 Abnormal uterine and vaginal bleeding, unspecified; Z87.891 Personal history of nicotine dependence; R35.0 Frequency of micturition; F41.9 Anxiety disorder, unspecified; J45.909 Unspecified asthma, uncomplicated; F32.A Depression, unspecified; Z87.19 Personal history of other diseases of the digestive system; E28.2 Polycystic ovarian syndrome; F43.10 Post-traumatic stress disorder, unspecified; Z79.899 Other long term (current) drug therapy; E66.9 Obesity, unspecified
CPT/HCPCS: 81001; 81025; 99282